=== PATIENT | male | born 1930 | race Caucasian/White ===

== ENCOUNTER 2017-01-07 06:45 | Emergency (ER) | payer MEDICARE, BC ==
[2017-01-07 06:53] VITALS: BP 173/51
[2017-01-07] MEDS ORDERED: Sodium Chloride 0.9% 5 ML Syringe FLUSH PRN (06:57)
[2017-01-07] MEDS ORDERED: Ketorolac 30 MG/ML SDV IVPUSH ONE (07:00)
[2017-01-07] MEDS ORDERED: Sodium Chloride 0.9% 500 ML IV SCH (07:00)
[2017-01-07] MEDS ORDERED: Sodium Chloride 0.9% 1,000 ML IV SCH (07:30)
--- NOTE | 2017-01-07 07:38 | EDM.PDOC ---
ED HPI GENERAL MEDICAL PROBLEM - General Chief Complaint: General Stated Complaint: sergio stone Time Seen by Provider: 01/07/17 07:00 Source of Information: Reports: Patient, Family History Limitations: Reports: No Limitations - History of Present Illness INITIAL COMMENTS - FREE TEXT/NARRATIVE: 86 YO WM presents to ER with a 1 day history of right flank pain. Pt reports he began having pain at approximately 5pm yesterday. Pt states the pain wax and waned all day. Pt states he took tylenol before bed but had some trouble sleeping. Pt states when he woke this am pain was more severe prompting ER visit. Pt denies any injury. Pt states he has been sitting in the car more due to recent drive. Pt states his pain is similar to kidney stones he has had in the past. Pt reports associated nausea without vomiting. Pt denies any dysuria, hematuria or frequency. Pt denies any fever/chills. Onset Date: 01/06/17 Onset Time: 17:00 Duration: Day(s): (1) Location: Reports: Back Quality: Reports: Pressure, Same as Previous Episode Improves with: Reports: None Worsens with: Reports: None Associated Symptoms: Reports: No Other Symptoms, Nausea/Vomiting Treatments ECONOMIC DEVELOPMENT COORDINATOR: Reports: Acetaminophen Right Flank Pain Score (Numeric/FACES): 9 - Related Data Allergies Allergy/AdvReac Type Severity Reaction Status Date / Time Environmental Allergens- Allergy Cannot Uncoded 01/07/17 06:48 Grain dust Remember Molds Allergy Cough Uncoded 01/07/17 06:48 Home Meds: Home Meds Clopidogrel [Plavix] 75 mg PO DAILY 11/12/14 [History] atorvaSTATin [Lipitor] 80 mg PO BEDTIME 11/12/14 [History] Metoprolol Succinate [Toprol XL] 25 mg PO DAILY #60 tab.er 11/14/14 [Rx] Nitroglycerin [Nitrostat] 0.4 mg SL ASDIRECTED PRN #20 tab.sl 11/14/14 [Rx] Acetaminophen [Tylenol] 650 mg PO Q4H 01/07/17 [History] Aspirin [Adult Low Dose Aspirin EC] 81 mg PO DAILY 01/07/17 [History] Hydrocodone/Acetaminophen [Hydrocodon-Acetaminophn 10-325] 1 each PO Q6H PRN # 10 tablet 01/07/17 [Rx] Isosorbide Dinitrate 15 mg PO DAILY 01/07/17 [History] Ondansetron [Zofran ODT] 4 mg PO Q6H PRN #10 tab.dis 01/07/17 [Rx] Xx Vit E 400 units PO DAILY 01/07/17 [History] Past Medical History Other Neuro History: CVA 2001 Social & Family History - Tobacco Use Smoking Status *Q: Former Smoker Years of Tobacco use: 30 Used Tobacco, but Quit: Yes Month Tobacco Last Used: 10 Second Hand Smoke Exposure: Yes - Recreational Drug Use Recreational Drug Use: No ED ROS GENERAL - Review of Systems Review Of Systems: See Below Constitutional: Reports: No Symptoms HEENT: Reports: No Symptoms Respiratory: Reports: No Symptoms Cardiovascular: Reports: No Symptoms Endocrine: Reports: No Symptoms GI/Abdominal: Reports: No Symptoms : Reports: No Symptoms Musculoskeletal: Reports: Back Pain Skin: Reports: No Symptoms Neurological: Reports: No Symptoms Psychiatric: Reports: No Symptoms Hematologic/Lymphatic: Reports: No Symptoms Immunologic: Reports: No Symptoms ED EXAM, GENERAL - Physical Exam Exam: See Below Exam Limited By: No Limitations General Appearance: Alert, WD/WN, No Apparent Distress Neck: Normal Inspection, Supple, Non-Tender, Full Range of Motion Respiratory/Chest: No Respiratory Distress, Lungs Clear, Normal Breath Sounds, No Accessory Muscle Use, Chest Non-Tender Cardiovascular: Normal Peripheral Pulses, Regular Rate, Rhythm, No Edema, No Gallop, No JVD, No Murmur, No Rub GI/Abdominal: Normal Bowel Sounds, Soft, Non-Tender, No Organomegaly, No Distention, No Abnormal Bruit, No Mass Back Exam: CVA Tenderness (R) Extremities: Normal Inspection, Normal Range of Motion, Non-Tender, Normal Capillary Refill, No Pedal Edema Neurological: Alert, Oriented, CN II-XII Intact, Normal Cognition, Normal Gait, Normal Reflexes, No Motor/Sensory Deficits Psychiatric: Normal Affect, Normal Mood Skin Exam: Warm, Dry, Intact, Normal Color, No Rash Lymphatic: No Adenopathy Course - Vital Signs Last Recorded V/S: Last Vital Signs Temp 34.9 C L 01/07/17 06:51 Pulse 56 L 01/07/17 06:51 Resp 18 01/07/17 06:51 BP 173/51 H 01/07/17 06:51 Pulse Ox 94 L 01/07/17 06:51 - Orders/Labs/Meds Orders: Active Orders 24 hr Category Date Time Status Abdomen Pelvis wo Cont [CT] Stat Exams 01/07/17 06:58 Taken UA W/MICROSCOPIC [URIN] Stat Lab 01/07/17 07:58 Results Sodium Chloride 0.9% [Normal Saline] 1,000 ml Med 01/07/17 07:30 Active IV ASDIRECTED Sodium Chloride 0.9% [Syrex Flush] Med 01/07/17 06:57 Active 5 ml FLUSH Q8HR PRN Saline Lock Insert [OM.PC] Routine Oth 01/07/17 06:57 Ordered Medication Orders Sodium Chloride (Normal Saline) 1,000 mls @ 999 mls/hr IV ASDIRECTED JONATHAN Last Admin: 01/07/17 07:30 Dose: 999 mls/hr Sodium Chloride (Syrex Flush) 5 ml FLUSH Q8HR PRN PRN Reason: Keep Vein Open Last Admin: 01/07/17 07:18 Dose: 5 ml Labs: Laboratory Tests 01/07/17 01/07/17 01/07/17 Range/Units 07:15 07:15 07:58 WBC 10.3 H (5.0-10.0) 10^3/uL RBC 5.19 (4.50-6.00) 10^6/uL Hgb 15.0 (13.0-17.0) g/dL Hct 45.5 (40.0-52.0) % MCV 87.7 (82.0-92.0) fL MCH 28.9 (27.0-31.0) pg MCHC 32.9 (32.0-36.0) g/dL RDW 12.8 (11.5-14.5) % Plt Count 207 (150-300) 10^3/uL MPV 6.8 L (7.4-10.4) fL Neut % (Auto) 74.4 H (50.0-70.0) % Lymph % (Auto) 13.1 L (20.0-40.0) % Snyder % (Auto) 8.7 H (2.0-8.0) % Eos % (Auto) 3.6 H (1.0-3.0) % Baso % (Auto) 0.2 (0.0-1.0) % Neut # (Auto) 7.7 H (2.5-7.0) 10^3/uL Lymph # (Auto) 1.3 (1.0-4.0) 10^3/uL Snyder # (Auto) 0.9 H (0.1-0.8) 10^3/uL Eos # (Auto) 0.4 H (0.1-0.3) 10^3/uL Baso # (Auto) 0.0 (0.0-0.1) 10^3/uL Sodium 143 (136-145) mmol/L Potassium 4.0 (3.3-5.3) mmol/L Chloride 108 (98-115) mmol/L Carbon Dioxide 25.6 (21.0-32.0) mmol/L BUN 14 (6-25) mg/dL Creatinine 0.93 (0.51-1.17) mg/dL Est Cr Clr Drug Dosing 60.51 mL/min Estimated GFR (MDRD) > 60 mL/min Glucose 114 H (70-110) mg/dL Calcium 8.8 (8.7-10.3) mg/dL Urine Color Yellow (YELLOW) Urine Appearance Slightly cloudy H (CLEAR) Urine pH 6.0 (5.0-9.0) Ur Specific [place] 1.025 (1.005-1.030) Urine Protein Negative (NEGATIVE) mg/dL Urine Glucose (UA) Negative (NEGATIVE) mg/dL Urine Ketones Negative (NEGATIVE) mg/dL Urine Occult Blood Trace-lysed H (NEGATIVE) Urine Nitrite Negative (NEGATIVE) Urine Bilirubin Negative (NEGATIVE) Urine Urobilinogen 0.2 (0.2-1.0) E.U./dL Ur Leukocyte Esterase Negative (NEGATIVE) Meds: Medications Generic Name Dose Route Start Last Admin Trade Name Freq PRN Reason Stop Dose Admin Sodium Chloride 1,000 mls @ 999 mls/hr 01/07/17 07:30 01/07/17 07:30 Normal Saline IV 999 mls/hr ASDIRECTED JONATHAN Administration Sodium Chloride 5 ml 01/07/17 06:57 01/07/17 07:18 Syrex Flush FLUSH 5 ml Q8HR PRN Administration Keep Vein Open Discontinued Medications Generic Name Dose Route Start Last Admin Trade Name Freq PRN Reason Stop Dose Admin Sodium Chloride 500 mls @ 999 mls/hr 01/07/17 07:00 Normal Saline IV .BOLUS JONATHAN Ketorolac Tromethamine 30 mg 01/07/17 07:00 01/07/17 07:16 Toradol IVPUSH 01/07/17 07:01 30 mg ONETIME ONE Administration - Radiology Interpretation Free Text/Narrative:: CT ABD/PELVIS- 4mm right UVJ stone with mild right hydronephrosis Departure - Departure Time of Disposition: 08:09 Disposition: Home, Self-Care 01 Condition: Good Clinical Impression: Kidney stone on right side - Discharge Information Prescriptions: Hydrocodone/Acetaminophen [Hydrocodon-Acetaminophn 10-325] 1 each PO Q6H PRN # 10 tablet PRN Reason: Pain Ondansetron [Zofran ODT] 4 mg PO Q6H PRN #10 tab.dis PRN Reason: Nausea Instructions: Renal Colic, [id number], Kidney Stones, [id number] Referrals: Joey Portillo MD [Primary Care Provider] - Forms: ED Department Discharge - My Orders Last 24 Hours: My Active Orders 01/07/17 06:57 Sodium Chloride 0.9% [Syrex Flush] 5 ml FLUSH Q8HR PRN Saline Lock Insert [OM.PC] Routine 01/07/17 06:58 Abdomen Pelvis wo Cont [CT] Stat 01/07/17 07:30 Sodium Chloride 0.9% [Normal Saline] 1,000 ml IV ASDIRECTED 01/07/17 07:58 UA W/MICROSCOPIC [URIN] Stat - Assessment/Plan Last 24 Hours: My Active Orders 01/07/17 06:57 Sodium Chloride 0.9% [Syrex Flush] 5 ml FLUSH Q8HR PRN Saline Lock Insert [OM.PC] Routine 01/07/17 06:58 Abdomen Pelvis wo Cont [CT] Stat 01/07/17 07:30 Sodium Chloride 0.9% [Normal Saline] 1,000 ml IV ASDIRECTED 01/07/17 07:58 UA W/MICROSCOPIC [URIN] Stat Assessment:: 1. 4mm kidney stone Plan: 1. discharge home 2. plenty of fluids 3. hydrocodone 10/325 PO Q6 PRN 4. zofran 4mg ODT SL Q6 PRN N/V 5. follow up with PCP for further evaluation and treatment
[2017-01-07 07:43] LABS: CHLORIDE,CL 108 mmol/L (98-115); SODIUM,NA 143 mmol/L (136-145)
[2017-01-07] MEDS ORDERED: Sodium Chloride 0.9% 1,000 ML ONE (08:12)
== END 2017-01-07 08:25 | disposition home or self-care (01) ==
LOC: KA.ED 06:45
DX: N13.2 Hydronephrosis with renal and ureteral calculous obstruction (principal); Z86.73 Personal history of transient ischemic attack (TIA), and cerebral infarction without residual deficits; Z87.891 Personal history of nicotine dependence; Z79.02 Long term (current) use of antithrombotics/antiplatelets; Z79.899 Other long term (current) drug therapy; Z79.82 Long term (current) use of aspirin; Z91.048 Other nonmedicinal substance allergy status
CPT/HCPCS: 74176; 80048; 81001; 85025; 96374; 99284; J1885; J7030